=== PATIENT | male | born 2000 | race Caucasian/White ===

== ENCOUNTER 2018-06-22 08:03 | Emergency (ER) | payer SELFPAY ==
--- NOTE | 2018-06-22 08:27 | EDM.PDOC ---
ED HPI GENERAL MEDICAL PROBLEM - General Chief Complaint: ENT Problem Stated Complaint: SORE THROAT Time Seen by Provider: 06/22/18 08:17 Source of Information: Reports: Patient, RN Notes Reviewed - History of Present Illness INITIAL COMMENTS - FREE TEXT/NARRATIVE: 18 year old male with onset of sore throat yesterday, hurts to swallow. minimal nasal jordan. not coughing, low grade fever, chills. Throat Pain Score (Numeric/FACES): 6 - Related Data Allergies Allergy/AdvReac Type Severity Reaction Status Date / Time No Known Allergies Allergy Verified 06/22/18 08:14 Home Meds: Home Meds Cephalexin [Keflex] 500 mg PO Q6HR #30 capsule 06/22/18 [Rx] Past Medical History - Past Health History Medical/Surgical History: Denies Medical/Surgical History Social & Family History - Tobacco Use Smoking Status *Q: Current Every Day Smoker Years of Tobacco use: 2 Packs/Tins Daily: 1 ED ROS ENT - Review of Systems Review Of Systems: See Below Constitutional: Reports: Fever, Chills HEENT: Reports: Throat Pain. Denies: Rhinitis, Sinus Problem Respiratory: Denies: Shortness of Breath, Cough Cardiovascular: Denies: Chest Pain GI/Abdominal: Denies: Abdominal Pain, Diarrhea, Vomiting Musculoskeletal: Reports: No Symptoms Skin: Reports: No Symptoms ED EXAM, ENT - Physical Exam Exam: See Below General Appearance: Alert, No Apparent Distress Nose: Normal Inspection Mouth/Throat: Pharyngeal Erythema. No: Tonsillar Exudates Head: No: Facial Swelling Neck: Supple, Lymphadenopathy (L), Lymphadenopathy (R) Respiratory/Chest: No Respiratory Distress, Lungs Clear, Normal Breath Sounds Cardiovascular: Regular Rate, Rhythm Neurological: Alert, No Motor/Sensory Deficits Skin: Warm, Dry, Normal Color, No Rash Course - Vital Signs Last Recorded V/S: Last Vital Signs Temp 98.8 F 06/22/18 08:11 Pulse 97 06/22/18 08:11 Resp 18 06/22/18 08:11 BP 139/66 06/22/18 08:11 Pulse Ox 97 06/22/18 08:11 Departure - Departure Time of Disposition: 08:25 Disposition: Home, Self-Care 01 Condition: Fair Clinical Impression: Pharyngitis Qualifiers: Pharyngitis/tonsillitis etiology: unspecified etiology Qualified Code(s): J02.9 - Acute pharyngitis, unspecified - Discharge Information Prescriptions: Cephalexin [Keflex] 500 mg PO Q6HR #30 capsule Referrals: PCP,None [Primary Care Provider] - Forms: ED Department Discharge Additional Instructions: Cephalexin antibiotic 500 mg 4 times daily for 1 week or until gone, alternate Tylenol and ibuprofen as needed for discomfort. Follow-up clinic if not much better within 3-4 days as expected.
== END 2018-06-22 08:34 | disposition home or self-care (01) ==
LOC: JD.ED 08:03
DX: J02.9 Acute pharyngitis, unspecified (principal); F17.210 Nicotine dependence, cigarettes, uncomplicated
CPT/HCPCS: 99282; 99283

== ENCOUNTER 2019-03-18 01:40 | Emergency (ER) | payer SELFPAY ==
[2019-03-18] MEDS ORDERED: Ondansetron 4 MG/2 ML SDV IVPUSH ONE (02:07)
[2019-03-18] MEDS ORDERED: HYDROmorphone 0.5 MG/0.5 ML Syringe IVPUSH ONE (02:07)
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
[2019-03-18] MEDS ORDERED: Sodium Chloride 0.9% 1,000 ML IV SCH (02:15)
[2019-03-18] MEDS ORDERED: FLU Vacc QS2019-20(6MOS+)/PF 60 MCG/0.5 ML SYRINGE IM ONE (02:15)
[2019-03-18] MEDS ORDERED: Penicillin V Potassium 500 MG Tab PO STA (02:55)
--- NOTE | 2019-03-18 08:03 | CT ---
CT facial bones Technique: Multiple axial sections through the facial bones were obtained. Reconstructed coronal and sagittal images were reviewed. Findings: Right and left globes are symmetric. Ocular muscles and optic nerves are symmetric between right and left sides. Mastoid sinuses are clear. Paranasal sinuses show nothing acute. Fracture is identified at the angle of the right mandible which involves the socket of the most posterior molar on this side. Additional nondisplaced fracture is noted to the left of midline within the mandibular symphysis involving the lateral incisor tooth socket. No additional facial bone fractures are seen. Impression: 1. Nondisplaced mandibular fractures each involving a tooth socket as noted above. 2. No acute paranasal sinus findings are seen. Diagnostic code #3 This report was dictated in [place] Standard Time I agree with preliminary report from [facility], finalized on 03/18/19, 3:34 AM Central Time
== END 2019-03-18 03:30 | disposition home or self-care (01) ==
LOC: JD.ED 01:40
DX: S02.609A Fracture of mandible, unspecified, initial encounter for closed fracture (principal); F17.220 Nicotine dependence, chewing tobacco, uncomplicated; Y04.2XXA Assault by strike against or bumped into by another person, initial encounter
CPT/HCPCS: 70486; 96361; 96374; 96375; 99284; A9270; J1170; J2405; J7030